=== PATIENT | female | born 1955 | race Caucasian/White ===

== ENCOUNTER 2017-10-13 16:13 | Emergency (ER) | payer OTHER ==
[2017-10-13] MEDS ORDERED: oxyCODONE/Acetamin 5/325 MG* TAB PO ONE (16:53)
--- NOTE | 2017-10-13 17:42 | RAD ---
HISTORY: Fall, wrist pain COMPARISONS: None VIEWS: 3, Frontal, lateral, and oblique views of the left wrist FINDINGS: BONE DENSITY: There is diffuse osteopenia. BONES: There is a dorsally angulated fracture of the distal radial metaphysis with articular extension. There is a nondisplaced fracture of the styloid process of the liver. JOINTS: There is no arthropathy. ALIGNMENT: There is no dislocation. SOFT TISSUES: Unremarkable. OTHER FINDINGS: None. IMPRESSION: 1. OSTEOPENIA. 2. DORSALLY ANGULATED FRACTURE OF THE DISTAL RADIAL METAPHYSIS. 3. NONDISPLACED FRACTURE OF THE STYLOID PROCESS OF THE ULNA.
[2017-10-13] MEDS ORDERED: Ondansetron ODT TAB* 4 MG PO ONE (17:57)
[2017-10-13] MEDS ORDERED: O ndansetron ODT 4MG 2TAB PRPK 4 MG PAK PO ONE (19:59)
[2017-10-13 20:08] VITALS: BP 108/73
--- NOTE | 2017-10-13 20:20 | ED ---
Joanna Latif Elizabeth, scribed for Jay Mathis MD on 10/13/17 at 1658 . Adult Trauma - HPI Summary HPI Summary: This patient is a 62 year old F presenting to [facility] via EMS with a following a fall that occurred earlier today. The railing of a deck broke when the patient was leaning on it and she fell approximately 5 feet onto her left arm and her head. The patient rates the pain 7/10 in severity. Symptoms aggravated by movement. Symptoms alleviated by nothing. Patient reports left arm pain and left calvo pain. Patient denies LOC or neck pain. - History of Current Complaint Chief Complaint: EDTraumaMultiple Stated Complaint: FALL Time Seen by Provider: 10/13/17 16:48 Hx Obtained From: Patient, Family/Operations Leader Mechanism of Injury: Fall - from 5 ft Loss of Consciousness: no loss of consciousness Onset/Duration: Started Minutes Ago, Traumatic, Still Present Onset of Pain: Immediate, Post Accident Onset Severity: Moderate Current Severity: Moderate Pain Intensity: 7 Pain Scale Used: 0-10 Numeric Location: Head, Extremities - left arm Aggravating Factor(s): Movement Alleviating Factor(s): Nothing Associated Signs & Symptoms: Negative: Loss of Consciousness - Allergy/Home Medications Allergies/Adverse Reactions: Allergies Allergy/AdvReac Type Severity Reaction Status Date / Time No Known Allergies Allergy Verified 10/13/17 17:52 Home Medications: Home Medications amLODIPine TAB* [Norvasc 5 mg TAB*] 5 mg PO DAILY 10/13/17 [History Confirmed ] PMH/Surg Hx/FS Hx/Imm Hx Respiratory History: Denies: Hx Chronic Obstructive Pulmonary Disease (COPD) Opthamlomology History: Denies: Hx Legally Blind EENT History: Denies: Hx Deafness Infectious Disease History: No Infectious Disease History: Denies: Traveled Outside the [place] in Last 30 Days - Family History Known Family History: Positive: Unknown Review of Systems Negative: Epistaxis Negative: Chest Pain Negative: Abdominal Pain Positive: Other - positive left arm pain, negative neck pain Neurological: Other - No LOC All Other Systems Reviewed And Are Negative: Yes Physical Exam - Summary Physical Exam Summary: Appearance: The patient is well-nourished in no acute distress and in no acute pain. Skin: The skin is warm and dry and skin color reflects adequate perfusion. HEENT: The head is normocephalic and atraumatic. The pupils are equal and reactive. The conjunctivae are clear and without drainage. Nares are patent and without drainage. Mouth reveals moist mucous membranes and the throat is without erythema and exudate. The external ears are intact. The ear canals are patent and without drainage. The tympanic membranes are intact. Neck: the neck is supple with full range of motion and non-tender. There are no carotid bruits. There is no neck vein distension. Respiratory: Chest is non-tender. Lungs are clear to auscultation and breath sounds are symmetrical and equal. Cardiovascular: Heart is regular rate and rhythm. There is no murmur or rub auscultated. There is no peripheral edema and pulses are symmetrical and equal. Abdomen: The abdomen is soft and non-tender. There are normal bowel sounds heard in all four quadrants and there is no organomegaly palpated. Musculoskeletal: There is no back tenderness noted. There is good capillary refill. There is no peripheral edema or calf tenderness elicited. Deformity to patients left wrist. Neurological: Patient is alert and oriented to person, place and time. Cranial nerves are grossly intact. Deep tendon reflexes are symmetrical and equal in all four extremities. Psychiatric: The patient has an appropriate affect and does not exhibit any anxiety or depression. Triage Information Reviewed: Yes Vital Signs On Initial Exam: Initial Vitals Temp Pulse Resp BP Pulse Ox 98.7 F 92 12 129/60 98 10/13/17 16:38 10/13/17 16:38 10/13/17 16:38 10/13/17 16:38 10/13/17 16:38 Vital Signs Reviewed: Yes Procedures - Splinting Location: Left wrist Hand-Made Type: orthoglass Splint: volar - 4 inch volar splint Pre-Proc Neuro Vasc Exam: normal Post-Proc Neuro Vasc Exam: unchanged from pre-exam Diagnostics - Vital Signs Vital Signs Temp Pulse Resp BP Pulse Ox 10/13/17 16:38 98.7 F 92 12 129/60 98 - Laboratory Lab Statement: Any lab studies that have been ordered have been reviewed, and results considered in the medical decision making process. - Radiology Wrist XR Xray Interpretation: Positive (See Comments) - IMPRESSION: 1. OSTEOPENIA. 2. DORSALLY ANGULATED FRACTURE OF THE DISTAL RADIAL METAPHYSIS. 3. NONDISPLACED FRACTURE OF THE STYLOID PROCESS OF THE ULNA. Dr. Mathis has reviewed this report. Radiology Interpretation Completed By: Radiologist Re-Evaluation - Re-Evaluation 1st re-eval Re-Evaluation Time: 17:58 Change: Unchanged Comment: Discussed imaging results with patient and patient's family. 2nd re-eval Re-Evaluation Time: 18:06 Change: Improved Comment: discussed course of treatment and discharge plan with patient. 3rd re-eval Re-Evaluation Time: 19:05 Change: Improved Comment: Applied an orthoglass splint to the patient's left wrist. Adult Trauma Course/Dx - Course Course Of Treatment: Ms. Shaw fell onto her outstretched left arm and sustained a distal radius/ulna fracture. It is not badly displaced but quite angulated. I spoke with Dr. Walls and put her into a volar splint. She will F/U with Ortho in 1-3 days for reduction. - Diagnoses Provider Diagnoses: Left radial fracture, Left ulnar fracture Discharge - Sign-Out/Discharge Documenting (check all that apply): Discharge/Admit/Transfer - Discharge Plan Condition: Stable Disposition: HOME Patient Education Materials: Arm Fracture in Adults (ED) Referrals: Kenyon Walls MD [Medical Doctor] - 1 Day Additional Instructions: Take ibuprofen for pain management. Follow up with Dr. Walls, orthopedist, in 1-3 days. Return to the emergency department with any new or worsening symptoms. - Billing Disposition and Condition Condition: STABLE Disposition: HOME The documentation as recorded by the Joanna alexandre Elizabeth accurately reflects the service I personally performed and the decisions made by me, Jay Mathis MD.
== END 2017-10-13 20:07 | disposition home or self-care (01) ==
LOC: ED 16:13
DX: S52.592A Other fractures of lower end of left radius, initial encounter for closed fracture (principal); S52.615A Nondisplaced fracture of left ulna styloid process, initial encounter for closed fracture; W17.89XA Other fall from one level to another, initial encounter; Y92.9 Unspecified place or not applicable; M85.88 Other specified disorders of bone density and structure, other site
CPT/HCPCS: 99282; A9270-GY

== ENCOUNTER 2017-10-15 10:51 | Day surgery (SDC) | payer OTHER ==
--- NOTE | 2017-10-15 07:18 | HP ---
PREOPERATIVE HISTORY AND PHYSICAL: DATE OF ADMISSION/SURGERY: 10/15/17 - [facility] DATE OF OFFICE VISIT/ENCOUNTER: 10/14/17 ATTENDING SURGEON: Renea Motley MD * (DICTATED BY ROSA ALEXANDER) PROCEDURE: Left wrist open reduction internal fixation. CHIEF COMPLAINT: Left wrist fracture. HISTORY OF PRESENT ILLNESS: This is a 62-year-old female who resides in [place], [place], and has been visiting [place] for the past several days. She sustained injury to her left wrist on 10/12/17 when she fell off a porch. She was seen at [facility] and x-rays showed a markedly displaced comminuted intraarticular fracture of the distal radius. She was splinted and referred to Dr. Motley's office for further evaluation and treatment considerations. She denies any other injuries from the fall. She has been using Percocet for pain control, but this has been making her nauseous. After review of x-rays and evaluation by Dr. Motley, the patient was given the options to have a left wrist open reduction internal fixation versus an attempt at closed reduction. The patient has consented to proceed with surgical intervention at this time in the form of an open reduction internal fixation. PAST MEDICAL HISTORY: Hypertension. PAST SURGICAL HISTORY: 1. Numerous reproductive surgeries. 2. ORIF of the left patellar fracture and subsequent removal of hardware. 3. Lipoma excision. CURRENT MEDICATIONS: 1. Amlodipine besylate 10 mg daily. 2. Calcium daily. ALLERGIES: No known drug allergies. FAMILY MEDICAL HISTORY: Stomach cancer, Parkinson's, hypertension. 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 She denies tobacco use and recreational drug use. She does drink alcohol on regular occasion, usually a glass of wine daily. REVIEW OF SYSTEMS: General: Positive for dizziness and lightheadedness from taking Percocet. Negative for fevers, chills, unexplained weight loss/gain. No known anesthesia problems in the past. HEENT: Negative for headache, syncopal episodes, visual changes. Integumentary: Negative for abrasions, lesions, or open wounds. Cardiothoracic: Negative for chest pain, palpitations, edema. Respiratory: Positive for seasonal allergies. Negative for shortness of breath with exertion, chronic cough, wheezing. GI: Negative for nausea, vomiting, diarrhea, constipation, GERD. : Negative for nocturia, urinary frequency, urgency, history of UTIs, and kidney problems. Musculoskeletal: Positive for current complaint. Negative for chronic or intermittent back pain. Neurological: Negative for paresthesias, numbness, history of seizure, stroke, poor balance. Positive for anxiety. Endocrine: Negative for diabetes and thyroid issues. Hematologic: Negative for easy bruising, anemia, bleeding disorders, history of DVT. Infectious Disease: Negative for history of MRSA, hepatitis C, HIV. PHYSICAL EXAMINATION GENERAL: Well-developed, well-nourished, 62-year-old female, in no acute distress. VITAL SIGNS: Height 5 feet 2 inches, weight 120 pounds. Pulse rate 74, blood pressure 138/80. HEENT: Normocephalic, atraumatic. Pupils are equal, round, and reactive to light and accommodation. Extraocular movements are intact. Throat is clear. NECK: Supple. No palpable lymph nodes. PULMONARY: Lungs are clear to auscultation bilaterally. No wheezes, rales, or rhonchi. CARDIOVASCULAR: Regular rate and rhythm. S1, S2. No murmurs, rubs, or gallops. No edema. ABDOMEN: Positive bowel sounds, soft, nontender. NEUROLOGICAL: Alert and oriented x3. Cranial nerves II through XII are intact. Sensation is intact to light touch. MUSCULOSKELETAL: On exam of her left wrist, it is supported by a volar splint, secured with an Dawson wrap. She has moderate swelling and ecchymosis in her fingers. She has good movement in her fingers and she has no tenderness at the elbow. Neurovascular function is intact. IMAGING STUDIES: X-rays, AP, lateral, and oblique of the left wrist, show markedly displaced comminuted fracture intraarticular of the distal radius. IMPRESSION: Left distal radius fracture. PLAN: The patient is scheduled to undergo a left wrist open reduction internal fixation with Dr. Motley on 10/15/17. She will return to the office 10 days postop for followup and suture removal. A prescription for [place] was e-scribed to the patient's pharmacy for postoperative pain management as the Percocet was making her nauseous. She may also use [id number] ibuprofen for postoperative pain. ROSA ALEXANDER [id number]/[facility] #: [id number] WENDY
[~2017-10-15 10:51] MED LIST: DiMENhydriNATE IV* 50 MG/ML VIAL ONE
[2017-10-15] MEDS ORDERED: ceFAZolin 2 GM PREMIX (*) 2 GM/50 ML BAG IVPB ONE (11:10)
[2017-10-15] MEDS ORDERED: Dexamethasone IV* 4 MG/ML 1 ML (4 MG) ONE (11:57)
[2017-10-15] MEDS ORDERED: Famotidine IV* 10 MG/ML 2 ML (20 mg) ONE (11:57)
[2017-10-15] MEDS ORDERED: Lidocaine 2% PF * 5 ML VIAL ONE (12:38)
[2017-10-15] MEDS ORDERED: Midazolam* 1 MG/ML 2 ML VIAL (2 MG) ONE (12:38)
[2017-10-15] MEDS ORDERED: fentaNYL* 50 MCG/ML 2 ML VIAL (100 MCG VIAL) ONE ×2 (12:38→13:47)
[2017-10-15] MEDS ORDERED: Propofol* 10 MG/ML 20 ML BTL IV PUSH ONE (12:38)
[2017-10-15] MEDS ORDERED: PROCHLORPERAZINE INJ 5 MG/ML 2 ML VIAL IV PRN (12:51)
[2017-10-15] MEDS ORDERED: HYDROcodone/ACETAMIN 5-325 MG* 1 TAB PO PRN (12:51)
[2017-10-15] MEDS ORDERED: Naloxone* 0.4 MG/ML 1 ML VIAL IV PRN (12:51)
[2017-10-15] MEDS ORDERED: DiMENhydriNATE IV* 50 MG/ML VIAL IV PUSH PRN (12:51)
[2017-10-15] MEDS ORDERED: oxyCODONE/Acetamin 5/325 MG* TAB PO PRN (12:51)
[2017-10-15] MEDS ORDERED: fentaNYL* 50 MCG/ML 2 ML VIAL (100 MCG VIAL) IV PRN (12:51)
[2017-10-15] MEDS ORDERED: Bupivacaine 0.5% SDV PF* 30ML VIAL ONE (12:54)
[2017-10-15] MEDS ORDERED: Ketorolac INJ* 30 MG/ML 1 ML VIAL ONE (13:11)
[2017-10-15] MEDS ORDERED: EPHEDrine (Pressors)* 50 MG/ML VIAL ONE (13:12)
[2017-10-15] MEDS ORDERED: KETAMINE HCL* 50 MG/ML 10 ML VIAL ONE (13:14)
[2017-10-15] MEDS ORDERED: Ondansetron INJ* 2 MG/ML VIAL ONE (13:39)
[2017-10-15 15:00] VITALS: BP 101/68
--- NOTE | 2017-10-16 06:13 | OP ---
DATE OF OPERATION: 10/15/17 [facility] DATE OF : 55 SURGEON: Renea Motley MD PSYCHOLOGICAL ANTHROPOLOGIST: ROSA Barboza ANESTHESIA: General. PRE-OP DIAGNOSIS: Distal radius fracture on the left, comminuted and displaced. POST-OP DIAGNOSIS: Distal radius fracture on the left, comminuted and displaced. OPERATIVE PROCEDURE: Open reduction internal fixation, left distal radius. INDICATIONS: Carol is a 62-year-old female who fell from a porch on to her outstretched left hand. She suffered a fracture of her distal radius; it is markedly displaced and she presents for ORIF. ESTIMATED BLOOD LOSS: Zero. TOURNIQUET TIME: About 30 minutes. DESCRIPTION OF PROCEDURE: The patient was brought to the operating room and was given a general anesthetic and placed in the supine position on the operating table with a tourniquet around her left upper arm. Skin of her left upper extremity was prepped and draped in the usual sterile fashion. The hand and forearm were exsanguinated and the tourniquet elevated to 250 mmHg. A longitudinal incision was made overlying the FCR tendon. We decided sharply through the FCR tendon sheath, both superficial and deep, and the FPL muscle was retracted ulnarly. The pronator quadratus was incised and subperiosteally dissected off the distal radius. The fracture fragments were reduced with traction and manipulation, and then a 2.4 variable angle distal radius plate was secured with three proximal and four distal screws. The position of the hardware and fracture fragments were checked on the C-arm in the AP and lateral views and found to be satisfactory. The wound was irrigated with saline. The pronator quadratus was repaired over the plate with 2-0 Vicryl suture. The deep portion of the FCR tendon sheath was repaired with 2-0 Vicryl suture and the skin edges were reapproximated with 4-0 nylon suture. The wound was dressed with Xeroform, 4x4, Webril, and a volar splint with an Dawson wrap. The patient tolerated the procedure well and was brought to the recovery room in good condition. [id number]/[facility] #: [id number] [facility]
--- NOTE | 2017-10-16 10:34 | RAD ---
INDICATION: Fall, trauma COMPARISONS: October 13, 2017 TECHNIQUE: Fluoroscopy was provided for a surgical procedure. Total fluoroscopy time is: 25 seconds FINDINGS: Spot images demonstrate internal fixation of the distal radius. There is a nondisplaced fracture of the styloid process of the ulna. IMPRESSION: FLUOROSCOPY WAS PROVIDED FOR A SURGICAL PROCEDURE CPT II Codes: G9500
== END 2017-10-15 14:55 | disposition home or self-care (01) ==
LOC: OREAST 10:51
PROVIDERS: ATTEND Orthopaedic Surgery
DX: S52.572A Other intraarticular fracture of lower end of left radius, initial encounter for closed fracture (principal); W13.8XXA Fall from, out of or through other building or structure, initial encounter; Y92.008 Other place in unspecified non-institutional (private) residence as the place of occurrence of the external cause; I10 Essential (primary) hypertension
CPT/HCPCS: 76000; C1713; C1776; J0690; J1100; J1240; J1885; J2250; J2405; J2704; J3010